=== PATIENT | female | born 1990 | race Caucasian/White ===

== ENCOUNTER → 2017-02-04 | Outpatient (CLI) | payer OTHER ==
--- NOTE | 2017-02-04 12:42 | DIAGNOSTIC IMAGING REPORT ---
R WRIST MIN 3 VIEWS ROUTINE CLINICAL HISTORY: 27 years-old Female presenting with M25.531 Wrist pain, [id number], lump over the distal ulna. TECHNIQUE: Frontal, bilateral oblique, and lateral views of the right wrist were obtained. COMPARISON: None. FINDINGS: No acute fracture or malalignment. No radiographic evidence of soft tissue swelling. Normal prominence of the distal ulna. IMPRESSION: No acute osseous injury. Electronically signed by: Jarod Briceño M.D. 02/04/2017 12:41 PM Dictated Date/Time: 02/04/2017 12:40 PM
== END ==
LOC: C.RAD1850 11:14
PROVIDERS: ATTEND Nurse Practitioner
DX: M25.531 Pain in right wrist (principal)

== ENCOUNTER → 2017-06-16 | Outpatient (CLI) | payer OTHER | END | disposition home or self-care (01) | LOC: C.LABBFT 10:26 | PROVIDERS: ATTEND Nurse Practitioner | DX: N91.2 Amenorrhea, unspecified (principal) ==

== ENCOUNTER → 2017-07-20 | Outpatient (CLI) | payer OTHER ==
[2017-07-20 14:37] LABS: BASO % 0.3 %; BASO ABS # 0.02 K/uL (0-0.2); EOS % 0.6 %; EOS ABS # 0.04 K/uL (0-0.5); HEMATOCRIT 37.9 % (37-47); HEMOGLOBIN 13.1 g/dL (12.0-16.0); IG# 0.01 K/uL (0.00-0.02); LYMPH ABS # 1.91 K/uL (1.2-3.4); MEAN CORPUSCULAR HEMOGLOBIN 30.8 pg (25-34); MEAN CORPUSCULAR HGB CONC 34.6 g/dl (32-36); MEAN PLATELET VOLUME 9.2 fL (7.4-10.4); MONO % 6.9 %; MONO ABS # 0.47 K/uL (0.11-0.59); NEUT % 64.1 %; NEUT ABS # 4.37 K/uL (1.4-6.5); PLATELET COUNT 342 K/uL (130-400); RED CELL DISTRIBUTION WIDTH CV 12.5 % (11.5-14.5); RED CELL DISTRIBUTION WIDTH SD 40.1 fL (36.4-46.3); WHITE BLOOD COUNT 6.82 K/uL (4.8-10.8)
== END | disposition home or self-care (01) ==
LOC: C.LAB1850 13:00
PROVIDERS: ATTEND Obstetrics & Gynecology
DX: Z34.01 Encounter for supervision of normal first pregnancy, first trimester (principal)

== ENCOUNTER → 2017-07-20 | Outpatient (CLI) | payer OTHER | END | disposition home or self-care (01) | LOC: C.PAPS 17:47 | PROVIDERS: ATTEND Obstetrics & Gynecology | DX: Z12.4 Encounter for screening for malignant neoplasm of cervix (principal); R87.610 Atypical squamous cells of undetermined significance on cytologic smear of cervix (ASC-US) ==

== ENCOUNTER → 2017-09-14 | Outpatient (CLI) | payer OTHER | END | disposition home or self-care (01) | LOC: C.LAB1850 11:01 | PROVIDERS: ATTEND Obstetrics & Gynecology | DX: Z34.02 Encounter for supervision of normal first pregnancy, second trimester (principal) ==

== ENCOUNTER → 2017-11-26 | Outpatient (CLI) | payer OTHER ==
[2017-11-26 10:23] LABS: HEMATOCRIT 37.2 % (37-47); HEMOGLOBIN 12.5 g/dL (12.0-16.0)
== END | disposition home or self-care (01) ==
LOC: C.LAB1850 09:17
PROVIDERS: ATTEND Obstetrics & Gynecology
DX: Z34.03 Encounter for supervision of normal first pregnancy, third trimester (principal)

== ENCOUNTER → 2017-12-02 | Outpatient (CLI) | payer OTHER | END | disposition home or self-care (01) | LOC: C.LAB1850 08:38 | PROVIDERS: ATTEND Obstetrics & Gynecology | DX: O28.1 Abnormal biochemical finding on antenatal screening of mother (principal); Z3A.00 Weeks of gestation of pregnancy not specified ==

== ENCOUNTER 2020-04-30 07:33 | Inpatient (IN) ==
--- NOTE | 2020-04-24 16:42 | History & Physical Report ---
Date of Service April 24, 2020 Assessment & Plan (1) History of delivery, currently : (2) History of pre-eclampsia in prior , currently : (3) History of delivery, currently : Patient to be admitted thursday for planned repeat c/s if no labor with . Did discuss induction risks with unfavorable cervix and use of pitocin including risk of scar rupture with prolonged use. She does not want to proceed if that is the case. She would rather proceed with c/s. Risks, alternatives and complications reviewed and consent reviewed and signed. Labs on day of surgery. History of Present Illness Chief Complaint: planned c/s Primary Care Provider: PONCHO Overton 30yo at 39 0/7 wks ega will present to L&D on 04/30/20 for planned repeat section. Patient denies rom, vb or ctx. +FM. Has desired but if no labor wants to proceed with c/s. PNC c/b 1. Prior delivery, LTCS, preeclampsia, on baby asa, desires 2. history of pylectasis this preg, resolved 3. Prior iugr, efw this preg at 32wks was aga. PNL RH pos, RI, gbs neg. covid test done today 04/24/20. All Active Problems (Updated 04/24/20 @ 16:47 by Chari Grimes MD, FACOG) History of pre-eclampsia in prior , currently History of delivery, currently ASCUS with positive high risk HPV cervical (Acute) delivery delivered Encounter for pre-operative examination Abscess (Acute) Allergies Allergy/AdvReac Type Severity Reaction Status Date / Time erythromycin base Allergy Intermediate Vomiting Verified 04/24/20 15:44 Penicillins Allergy Unknown RASH Verified 04/24/20 15:44 Home Medications Medication Instructions Recorded Confirmed Type prenat.vits,brianne,[id number] 1 tab PO QAM 07/08/19 04/24/20 History aspirin 81 mg tablet,delayed 81 mg PO QAM 01/10/20 04/24/20 History release Patient History Medical History (Updated 04/24/20 @ 16:47 by Chari Grimes MD, FACOG) Amenorrhea H/O chlamydia infection 2009 H/O migraine teenager IUGR (intrauterine growth retardation) Menstrual disorder Vaginal Pap smear, abnormal ascus/hpv +, no follow up care July 2017 Vaginitis Varicella vaccination Surgical History (Updated 04/24/20 @ 16:50 by Chari Grimes MD, FACOG) H/O oral surgery H/O wisdom tooth extraction at age 16 History of surgical removal of ganglion cyst at age 18 Hx of tonsillectomy at age 16 S/P section Family History Father Elevated cholesterol Dyslipidemia Family/Other Cerebral palsy Mother Lung cancer Anxiety Other Diabetes Denies family history of Ovarian cancer Breast cancer Colorectal cancer Social History (Updated 04/24/20 @ 09:13 by Abby Barriga, RAJINDER) Smoking Status: Former smoker Second Hand Exposure: Yes (PARENTS SMOKED WHEN SHE WAS A CHILD); Hx Alcohol Use: Yes Alcohol type: beer Hx Substance Use: No Preferred Language: Swedish Communication Ability: Effective Cooperative Manager Required: No Beliefs That Will Affect Care: None marital status: marital status details: Rodrigo Martinez (29) [phone] Current Living Situation: Spouse and Family current occupational status: previously employed and other current occupation: HOMEMAKER Feels Safe at Home: Yes Assistive Devices: Contacts and Glasses Physical Exam Constitutional: WD/WN, vitals as above Respiratory: normal respiratory effort, lungs clear to auscultation Cardiovascular: Rate/Rhythm: regular rate and regular rhythm Gastrointestinal (Abdomen): soft gravid nt Musculoskeletal: no edema nontender calves Neurologic: grossly normal Psychiatric: A+Ox3, euthymic affect Genitourinary: Manual OB Exam: + cervical dilation fingertip, + cervical effacement 50% and + station -2 Coding Level of Care Code None Diagnoses History of delivery, currently O09.899 History of pre-eclampsia in prior , currently O09.299 History of delivery, currently O34.219
[2020-04-30] MEDS ORDERED: LACTATED RINGER'S 1,000 ML IV PRN (07:43)
[2020-04-30 08:10] LABS: Hematocrit (blood only) 34.5 % (37-47); Hemoglobin 11.6 g/dL (12.0-16.0); Mean Corpuscular Hemoglobin 28.9 pg (25-34); Mean Corpuscular Hgb Conc 33.6 g/dL (32-36); Mean Platelet Volume 9.7 fL (7.4-10.4); Platelet Count 292 K/uL (130-400); RDW Coefficient of Variation 13.8 % (11.5-14.5); RDW Standard Deviation 42.9 fL (36.4-46.3); Red Blood Count 4.01 M/uL (4.2-5.4); White Blood Count 9.25 K/uL (4.8-10.8)
--- NOTE | 2020-04-30 09:39 | Anesthesiology Consultation ---
Date of Service April 30, 2020 Assessment & Plan (1) Encounter for pre-operative examination: Chart Review Chart Review: Acceptable Risk for Surgery and Patient NOT seen in Pre Admission Testing Consults Requested none ASA ASA3 Proposed Anesthesia Anesthesia Type: Spinal Risk / Benefits Reviewed With: PT / POA / Parent / Guardian, Accepts Plan and Informed Consent Obtained History Surgery Operation Date: 04/30/20 09:30 Proposed Procedures p Section in LD - Chari Grimes MD, FACOG Height/Weight Height: 5 ft 2 in Weight: 103.873 kg Allergies Allergy/AdvReac Type Severity Reaction Status Date / Time erythromycin base Allergy Intermediate Vomiting Verified 04/24/20 15:44 Penicillins Allergy Unknown RASH Verified 04/24/20 15:44 Medications Home Medications Medication Instructions Recorded Confirmed Last Taken aspirin 81 mg tablet,delayed 81 mg PO QAM 01/10/20 04/30/20 04/29/20 07:00 release prenat.vits,brianne,[id number] 1 tab PO DAILY 04/30/20 04/30/20 04/29/20 07:00 [ Vitamin] Active Medications Generic Name Dose Route Start Last Admin Trade Name Freq PRN Reason Stop Dose Admin Lactated Ringer's 1,000 mls @ 999 mls/hr 04/30/20 07:43 04/30/20 08:13 Lr IV 999 mls/hr .Q1H1M PRN Administration L&D Protocol Protocol NPO Date Last Intake of Fluids: 04/29/20 Time Last Intake of Fluids: 21:00 Date Last Intake of Solids: 04/29/20 Time Last Intake of Solids: 21:00 Past Medical History Medical History Amenorrhea H/O chlamydia infection 2009 H/O migraine teenager IUGR (intrauterine growth retardation) Menstrual disorder Vaginal Pap smear, abnormal ascus/hpv +, no follow up care July 2017 Vaginitis Varicella vaccination Exercise / Class Metabolic Activity II 4-5 Yardwork/Stairs/Walk up hill Negative for chest pain or shortness of breath. Past Family History Family History Father Elevated cholesterol Dyslipidemia Family/Other Cerebral palsy Mother Lung cancer Anxiety Other Diabetes Denies family history of Ovarian cancer Breast cancer Colorectal cancer Past Surgical History Surgical History H/O oral surgery H/O wisdom tooth extraction at age 16 History of surgical removal of ganglion cyst at age 18 Hx of tonsillectomy at age 16 S/P section Past Anesthesia History No Hx of Anesthesia Complications History of PONV No Hx of PONV Social History Smoking Status: Former smoker tobacco type: e-cigarettes Do You Dip or Chew Tobacco: No Smoking End Date: 2016 Hx Alcohol Use: Yes Alcohol type: beer alcohol intake frequency: a few times a month Alcohol Intake Frequency Comment: WHEN NOT Hx Substance Use: No substance use type: former substance user Substance Use Type Other:: more than 2 years ago Last Used Substance Other:: LAST USED 2016 Review of Systems Patient denies numbness, tingling or weakness in lower extremities. Patient denies history of abnormal bleeding or bleeding disorder. Patient denies active use of anticoagulants other than low dose aspirin. Physical Exam Vital Signs Last Vital Signs Temp 37.0 C 04/30/20 08:20 Pulse 91 H 04/30/20 08:20 Resp 20 04/30/20 08:20 BP 126/77 04/30/20 08:20 Constitutional + obese (gravid uterus) ENMT Mouth: no TMJ abnormality and oral opening not small Thyromental Distance: > or= 3.5 Finger Breadths Mallampati Class: II Neck normal visual inspection; neck extension not limited Respiratory normal respiratory effort Auscultation: lungs clear to auscultation bilaterally Cardiovascular Rate/Rhythm: regular rate and regular rhythm Heart Sounds: no murmur Neurologic moves all extremities Motor/Sensory: no sensory deficit Psychiatric Orientation: alert and oriented x 3 Testing Laboratory Results 04/30/20 07:58 Blood Type B Positive 04/30/20 07:58 Antibody Screen NEGATIVE 04/30/20 07:58
[2020-04-30] MEDS ORDERED: CITRIC ACID/SODIUM CITRATE 15 ML UDC ONE (09:41)
[2020-04-30] MEDS ORDERED: CITRIC ACID/SODIUM CITRATE 15 ML UDC PO ONE (09:43)
--- NOTE | 2020-04-30 10:15 | History & Physical Bridge Note ---
Date of Service April 30, 2020 History & Physical Bridge Note I have examined the patient, reviewed the History & Physical and in the interval since the performance of the History & Physical I have noted the following changes of clinical significance: no changes noted
[2020-04-30] MEDS ORDERED: ONDANSETRON INJ 2 MG/ML 2 ML VIAL ONE (10:20)
[2020-04-30] MEDS ORDERED: fentaNYL citrate 100 MCG/2 ML VIAL ONE (10:20)
[2020-04-30] MEDS ORDERED: MoRPHine SULFATE PF 1 MG/ML 10 ML AMP/VIAL ONE (10:20)
[2020-04-30] MEDS ORDERED: OXYTOCIN 10 UNITS/ML VIAL ONE (10:20)
[2020-04-30] MEDS ORDERED: SODIUM CHLORIDE 0.9% INJ 10 ML VIAL ONE (10:24)
[2020-04-30] MEDS ORDERED: PHENYLEPHRINE 100MCG/ML 5ML SYR ONE (11:02)
[2020-04-30] MEDS ORDERED: ePHEDrine sulfate 50 MG/ML SYR ONE (11:02)
[2020-04-30] MEDS ORDERED: NALOXONE HCL 0.4 MG/1 ML VIAL/CARP IV PRN (11:09)
[2020-04-30] MEDS ORDERED: NALOXONE HCL 0.08 MG in SYRINGE 1.8 ML IV PRN (11:09)
[2020-04-30] MEDS ORDERED: ePHEDrine sulfate 50 MG/ML AMP IV PRN (11:09)
[2020-04-30] MEDS ORDERED: ACETAMINOPHEN 1000 MG/100 ML IV IV PRN (11:09)
[2020-04-30] MEDS ORDERED: LACTATED RINGER'S 500 ML IV PRN (11:09)
[2020-04-30] MEDS ORDERED: MoRPHine SULFATE PF 1 MG/ML 10 ML AMP/VIAL INT SPINAL ONE (11:09)
[2020-04-30] MEDS ORDERED: diphenhydrAMINE 50 MG/ML VIAL IV PRN (11:09)
[2020-04-30] MEDS ORDERED: HYDROmorphone INJ 0.5 MG/0.5 ML SYR IV PRN (11:09)
[2020-04-30] MEDS ORDERED: ONDANSETRON INJ 2 MG/ML 2 ML VIAL IV PRN (11:09)
[2020-04-30] MEDS ORDERED: NALOXONE HCL 1 MG in SODIUM CHLORIDE 0.9% 1000ML 1,000 ML IV PRN (11:09)
[2020-04-30] MEDS ORDERED: SODIUM CHLORIDE 0.9% 1000ML 1,000 ML IV SCH (11:15)
[2020-04-30] MEDS ORDERED: NO NARCOTICS OR SEDATIVES SCH (11:15)
[2020-04-30] MEDS ORDERED: KETOROLAC 30 MG/ML VIAL ONE (11:28)
--- NOTE | 2020-04-30 11:44 | Post Operative Brief Note ---
PG Immediate Post Op with CF Date of Surgery April 30, 2020 Pre & Post Diagnosis Operation Date: 04/30/20 09:30 Pre-Op Diagnosis: 1. 39 week iup 2. Prior section, desires Repeat Section Post-Op Diagnosis: same I identified the patient and participated in the time-out.: Yes Procedure Operation Date: 04/30/20 09:30 Actual Procedures Repeat Low Transverse Section Surgeon Chari Grimes MD, FACOG Tunnel Elastic Operator Zigzag Dr. Centeno Estimated Blood Loss 500 Findings Consistent with Post-Op Diagnosis (viable female, apgars pending. normal uterus, tubes and ovaries bilaterally) Fluids 1300 Specimens Specimen Description: 1. Placenta, HOLD Drains Dillon Catheter Anesthesia Type Spinal Complications none Disposition Accompanied Patient To Recovery: No Disposition: L&D
--- NOTE | 2020-04-30 12:07 | Operative Report ---
PG Post Operative Report Pre & Post Diagnosis Operation Date: 04/30/20 09:30 Pre-Op Diagnosis: 1. 39+week iup 2. Prior section, desires repeat Section Post-Op Diagnosis: same I identified the patient and participated in the time-out.: Yes Procedure Operation Date: 04/30/20 09:30 Actual Procedures Repeat Low Transverse Section Surgeon Chari Grimes MD, FACOG Service Counselor Dr. Centeno Estimated Blood Loss 500 Findings Consistent with Post-Op Diagnosis (viable female, apgars 8,9. normal uterus, tubes and ovaries bilaterally) Fluids 1300 Specimens cord blood Drains huntley Anesthesia Type Spinal Complications none Disposition Accompanied Patient To Recovery: No Disposition: L&D Indications 30yo at 39 wks jose presents to L&D for planned repeat section. She had wanted to consider if presented in labor but since she did not, wanted to proceed with section. Description of Procedure The patient was taken to the operating room and identified. After adequate anesthesia was obtained, she was placed in the supine position with a leftward tilt on the operating table and prepped and draped in the usual sterile fashion. A huntley catheter had already been placed. The knife was used to create a Pfannensteil skin incision that was carried down to the underlying layer of fascia. The fascia was nicked in the midline and this opening was extended laterally using Carver scissors. Mraie clamps were placed on the superior and inferior aspect of the fascial incision tenting it upward and the underlying rectus muscles were dissected off the overlying fascia both sharply and bluntly using Carver scissors. The rectus muscles were bluntly in the midline. The peritoneal cavity was bluntly entered into. This opening was stretched. The bladder blade was placed. The vesicouterine peritoneum was elevated and opened up into and the bladder flap was created digitally and bladder blade was replaced. The knife was used to create a hysterotomy and this opening was stretched. The operators hand was placed through the hysterotomy and the bladder blade was removed. The head was elevated and flexed and with fundal pressure the head was delivered, nuchal x 2 reduced with ease. The shou lders and body were rapidly delivered. The cord was clamped and cut and the 's mouth and nares were bulb suction. The was handed off to the awaiting pediatricians. Cord blood was obtained. The placenta was manually expressed. The uterus was exteriorized and cleared of all clots and debris. Dilute IV Pitocin was begun. The uterine tone was improving. The hysterotomy was closed in a running interlocking fashion using 0 Vicryl followed by a second imbricating layer of 0 Vicryl. The hysterotomy was hemostatic. The pelvis was irrigated. The uterus was returned to the abdomen. The gutters were cleared of all clots and debris. The hysterotomy was reinspected and bleeding site was stitched with figure of eight of 2-0 vicryl for excellent hemostasis. The fascia was then closed in running fashion using 0 Vicryl. The subcutaneous fat was copiously irrigated and reapproximated using 2-0 chromic. The skin was closed in a subcuticular fashion using 4-0 Vicryl. At this point the procedure was terminated. The patient was transferred to the recovery room in stable condition. All sponge, lap and needle counts are correct x2. I attest to the content of the Intraoperative Record and any orders documented therein. Any exceptions are noted below. OB Procedure charges OB Charges 90345 C/S
[2020-04-30] MEDS ORDERED: SUPERCREAM 0.870% 15 GM JAR EXT PRN (12:39)
[2020-04-30] MEDS ORDERED: BENZOCAINE 20% AER SPR 82.5 GM CAN EXT PRN (12:39)
[2020-04-30] MEDS ORDERED: DIPHTHERIA/TETANUS/PERTUSSIS 0.5 ML SYR/VIAL IM ONE (12:39)
[2020-04-30] MEDS ORDERED: HYDROCORTISONE ACETATE 25 MG SUPP PR PRN (12:39)
[2020-04-30] MEDS: OXYTOCIN 20 UNITS in LACTATED RINGER'S 1,000 ML IV SCH ×2 (12:49→21:31)
--- NOTE | 2020-04-30 13:59 | Anesthesiology Progress Note ---
Date of Service April 30, 2020 Anesthesia Post Procedure Vital Signs Vital Signs: Temp Pulse Resp BP Pulse Ox 04/30/20 13:55 87 97 04/30/20 13:52 99 H 132/78 04/30/20 13:50 95 H 98 04/30/20 13:45 100 H 97 04/30/20 13:42 89 133/82 04/30/20 13:40 87 97 04/30/20 13:35 85 97 04/30/20 13:32 82 135/82 04/30/20 13:30 85 20 98 04/30/20 13:25 85 97 04/30/20 13:22 85 133/84 04/30/20 13:20 81 97 04/30/20 13:15 86 98 04/30/20 13:12 86 132/79 04/30/20 13:10 87 97 04/30/20 13:05 86 97 04/30/20 13:02 80 133/73 04/30/20 13:00 89 20 97 04/30/20 12:55 76 98 04/30/20 12:54 80 133/68 04/30/20 12:50 86 20 97 04/30/20 12:45 81 98 04/30/20 12:40 83 20 98 04/30/20 12:35 81 98 04/30/20 12:30 80 20 98 04/30/20 12:26 86 93 04/30/20 12:25 80 98 04/30/20 12:22 77 121/69 04/30/20 12:20 88 20 99 04/30/20 12:15 91 H 97 04/30/20 12:13 88 130/73 04/30/20 12:10 88 20 99 04/30/20 12:05 77 99 04/30/20 12:02 79 116/63 04/30/20 12:00 36.5 C 80 20 99 04/30/20 11:55 75 98 04/30/20 11:52 77 117/60 04/30/20 08:20 37.0 C 91 H 20 126/77 04/30/20 08:13 37.0 C 20 Transfer of Care Handoff Completed per policy Notes Mental Status: alert / awake / arousable and participated in evaluation Nausea / Vomiting: adequately controlled Pain: adequately controlled Airway Patency, RR, SpO2: stable & adequate BP & HR: stable & adequate Hydration State: stable & adequate Neuraxial Anesthesia: was administered and sensory block is resolving Anesthetic Complications: no major complications apparent and Pt Satisfied with anesthetic care
[2020-04-30] MEDS: SIMETHICONE 80 MG CHEW PO SCH ×3 (14:58→21:30)
[2020-04-30] MEDS: KETOROLAC 30 MG/ML VIAL IV PRN ×2 (17:07→23:36)
[2020-04-30] MEDS: DOCUSATE SODIUM 100 MG CAP PO SCH (21:30)
[2020-05-01] MEDS ORDERED: diphenhydrAMINE Capsule 25 MG CAP PO PRN (05:09)
[2020-05-01] MEDS ORDERED: diphenhydrAMINE 50 MG/ML VIAL IV PRN (05:09)
[2020-05-01] MEDS ORDERED: PROMETHAZINE HCL 25 MG in SODIUM CHLORIDE 0.9% 50 ML IV PRN (05:09)
[2020-05-01] MEDS ORDERED: KETOROLAC 30 MG/ML VIAL IV PRN (05:09)
[2020-05-01] MEDS ORDERED: ONDANSETRON INJ 2 MG/ML 2 ML VIAL IV PRN (05:09)
[2020-05-01] MEDS ORDERED: DC INTRASPINAL MORPHINE ONE (05:09)
[2020-05-01 05:54] LABS: Basophils # (auto) 0.01 K/uL (0-0.2); Basophils % (auto) 0.1 %; Eosinophils # (auto) 0.02 K/uL (0-0.5); Eosinophils % (auto) 0.3 %; Hematocrit (blood only) 27.2 % (37-47); Immature Granulocytes # (auto) 0.02 K/uL (0.00-0.02); Immature Granulocytes % (auto) 0.3 %; Lymphocytes # (auto) 1.66 K/uL (1.2-3.4); Lymphocytes % (auto) 21.3 %; Mean Corpuscular Hemoglobin 28.8 pg (25-34); Mean Corpuscular Hgb Conc 33.1 g/dL (32-36); Mean Corpuscular Volume 87.2 fL (80-100); Mean Platelet Volume 9.2 fL (7.4-10.4); Monocytes # (auto) 0.66 K/uL (0.11-0.59); Monocytes % (auto) 8.5 %; Neutrophils # (auto) 5.44 K/uL (1.4-6.5); Neutrophils % (auto) 69.5 %; Platelet Count 205 K/uL (130-400); RDW Coefficient of Variation 14.2 % (11.5-14.5); RDW Standard Deviation 45.3 fL (36.4-46.3); Red Blood Count 3.12 M/uL (4.2-5.4); White Blood Count 7.81 K/uL (4.8-10.8)
--- NOTE | 2020-05-01 07:41 | Obstetrical Progress Note ---
Date of Service May 01, 2020 Assessment & Plan (1) care following delivery: stable, hgb noted. adv diet, await void. , rh pos, ri. Day #:: 1 Subjective Ambulation: limited ambulation Passing Gas:: Yes Diet Tolerance:: clear liquids Lochia:: Small Feeding Type:: breast feeding pain control good. has not voided yet but feels urge to pee. ready to eat regular diet. . Physical Exam Constitutional WD/WN, vitals as above Respiratory normal respiratory effort, lungs clear to auscultation Cardiovascular Rate/Rhythm: regular rate and regular rhythm Gastrointestinal (Abdomen) Inspection/Auscultation: abdomen normal to inspection Percussion/Palpation: abdomen soft Fundus firm at U, to right, pt with full bladder. Musculoskeletal nt calves tr edema Neurologic grossly normal Psychiatric A+Ox3, euthymic affect Results & Data ([facility]) Vital Signs (Past 12 Hours) Vital Signs Temp Pulse Resp BP Pulse Ox Pulse Ox 05/01/20 05:00 98.4 F 109 H 17 144/74 H 97 05/01/20 03:30 17 97 05/01/20 02:30 18 96 05/01/20 01:45 18 96 05/01/20 00:40 17 97 04/30/20 23:40 98.6 F 94 H 17 115/74 98 98 04/30/20 22:30 18 98 04/30/20 21:35 18 96 04/30/20 20:30 18 96
[2020-05-01] MEDS: SIMETHICONE 80 MG CHEW PO SCH ×4 (08:21→21:51)
[2020-05-01] MEDS: IBUPROFEN 600 MG TAB PO PRN ×4 (08:21→21:52)
[2020-05-01] MEDS: DOCUSATE SODIUM 100 MG CAP PO SCH ×2 (08:21→21:52)
[2020-05-01] MEDS: oxyCODONE/ACETAMINOPHEN 5mg/325mg TAB PO PRN ×4 (08:22→21:50)
--- NOTE | 2020-05-01 09:48 | Anesthesiology Progress Note ---
Date of Service May 01, 2020 Anesthesia Post Procedure Vital Signs Vital Signs: Temp Pulse Pulse Pulse Resp BP BP 05/01/20 08:20 36.8 C 102 H 16 117/77 05/01/20 05:00 36.9 C 109 H 17 144/74 H 05/01/20 03:30 17 05/01/20 02:30 18 05/01/20 01:45 18 05/01/20 00:40 17 04/30/20 23:40 37.0 C 94 H 17 115/74 04/30/20 22:30 18 04/30/20 21:35 18 04/30/20 20:30 18 04/30/20 19:25 37.1 C 101 H 18 124/75 04/30/20 18:45 18 04/30/20 17:40 18 04/30/20 16:40 93 H 16 129/85 04/30/20 15:40 37.0 C 90 18 122/83 04/30/20 14:40 89 04/30/20 14:35 83 04/30/20 14:32 88 132/72 04/30/20 14:30 90 04/30/20 14:25 86 04/30/20 14:22 86 131/72 04/30/20 14:20 83 04/30/20 14:15 93 H 04/30/20 14:12 86 122/62 04/30/20 14:10 89 04/30/20 14:05 92 H 04/30/20 14:02 88 112/55 L 04/30/20 14:00 88 20 04/30/20 13:55 87 04/30/20 13:52 99 H 132/78 04/30/20 13:50 95 H 04/30/20 13:45 100 H 04/30/20 13:42 89 133/82 04/30/20 13:40 87 04/30/20 13:35 85 04/30/20 13:32 82 135/82 04/30/20 13:30 85 20 04/30/20 13:25 85 04/30/20 13:22 85 133/84 04/30/20 13:20 81 04/30/20 13:15 86 04/30/20 13:12 86 132/79 04/30/20 13:10 87 04/30/20 13:05 86 04/30/20 13:02 80 133/73 04/30/20 13:00 89 20 04/30/20 12:55 76 04/30/20 12:54 80 133/68 04/30/20 12:50 86 20 04/30/20 12:45 81 04/30/20 12:40 83 20 04/30/20 12:35 81 04/30/20 12:30 80 20 04/30/20 12:26 86 04/30/20 12:25 80 04/30/20 12:22 77 121/69 04/30/20 12:20 88 20 04/30/20 12:15 91 H 04/30/20 12:13 88 130/73 04/30/20 12:10 88 20 04/30/20 12:05 77 04/30/20 12:02 79 116/63 04/30/20 12:00 36.5 C 80 20 04/30/20 11:55 75 04/30/20 11:52 77 117/60 Pulse Ox Pulse Ox 05/01/20 08:20 97 05/01/20 05:00 97 05/01/20 03:30 97 05/01/20 02:30 96 05/01/20 01:45 96 05/01/20 00:40 97 04/30/20 23:40 98 98 04/30/20 22:30 98 04/30/20 21:35 96 04/30/20 20:30 96 04/30/20 19:25 96 96 04/30/20 18:45 95 04/30/20 17:40 97 04/30/20 16:40 97 04/30/20 15:40 97 97 04/30/20 14:40 98 04/30/20 14:35 97 04/30/20 14:32 04/30/20 14:30 98 04/30/20 14:25 98 04/30/20 14:22 04/30/20 14:20 98 04/30/20 14:15 95 04/30/20 14:12 04/30/20 14:10 97 04/30/20 14:05 97 04/30/20 14:02 04/30/20 14:00 97 04/30/20 13:55 97 04/30/20 13:52 04/30/20 13:50 98 04/30/20 13:45 97 04/30/20 13:42 04/30/20 13:40 97 04/30/20 13:35 97 04/30/20 13:32 04/30/20 13:30 98 04/30/20 13:25 97 04/30/20 13:22 04/30/20 13:20 97 04/30/20 13:15 98 04/30/20 13:12 04/30/20 13:10 97 04/30/20 13:05 97 04/30/20 13:02 04/30/20 13:00 97 04/30/20 12:55 98 04/30/20 12:54 04/30/20 12:50 97 04/30/20 12:45 98 04/30/20 12:40 98 04/30/20 12:35 98 04/30/20 12:30 98 04/30/20 12:26 93 04/30/20 12:25 98 04/30/20 12:22 04/30/20 12:20 99 04/30/20 12:15 97 04/30/20 12:13 04/30/20 12:10 99 04/30/20 12:05 99 04/30/20 12:02 04/30/20 12:00 99 04/30/20 11:55 98 04/30/20 11:52 Transfer of Care Handoff Completed per policy Notes Mental Status: alert / awake / arousable Patient Amnestic to Procedure: Yes Nausea / Vomiting: adequately controlled Pain: adequately controlled Airway Patency, RR, SpO2: stable & adequate BP & HR: stable & adequate Hydration State: stable & adequate Neuraxial Anesthesia: was administered and sensory block resolved Anesthetic Complications: no major complications apparent and Pt Satisfied with anesthetic care
[2020-05-01] MEDS: FERROUS SULFATE 325 MG TAB PO SCH (12:19)
[2020-05-02] MEDS: IBUPROFEN 600 MG TAB PO PRN ×2 (05:14→09:56)
[2020-05-02] MEDS: oxyCODONE/ACETAMINOPHEN 5mg/325mg TAB PO PRN ×2 (05:15→09:56)
--- NOTE | 2020-05-02 05:32 | Obstetrical Progress Note ---
Date of Service May 02, 2020 Assessment & Plan (1) care following delivery: S/p Elective Repeat LTCS Day 2 - Feels well today. Eating well, voiding well, ambulating well. - Pain well-controlled with ibuprofen/percocet Q4H PRN - Vital signs reviewed: mildly tachycardic to [id number], otherwise stable/WNL. - Hemoglobin reviewed. 11.6 --> 9.0 --> 8.8 (today). - Blood Type: B+, antibody negative, GBS negative, Rubella Immune, COVID-19 negative - Continue routine post-operative care: encourage ambulation, monitor and control pain with Motrin PRN, continue regular OB diet, monitor lochia - Encourage breast feeding. - Pt counselled on discharge instructions - After discharge, will have 6-wk follow-up with Dr. Grimes Admission and Anticipated Discharge Date Admission Date: April 30, 2020 Supervising Physician Co-Signing Physician Notes Patient seen and evaluated and agree with the above findings and plan. Stable for discharge today per patient request Subjective HPI Manda Martinez is a 30 y/o female who is POD #2 following elective repeat delivery at 39 weeks. She reports feeling well overall this morning. mild abdominal cramping and 4-7/10 pain well managed on analgesics. Voiding well. Tolerating meals overnight without difficulty. Patient has been able to ambulate some. passing gas and no bowel movement. Has persistent lochia with no improvement this morning. Currently . Review of Systems Review of Systems: ROS Denies fever or chills. Denies shortness of breath or cough. Denies chest pain. Denies breast pain. Denies dysuria. Denies leg pain or leg swelling. Denies headache or changes in vision. Physical Exam Physical Exam: PE General: Alert, oriented. No acute distress. Cardiac: Regular rate and rhythm. No murmurs. Respiratory: Clear to auscultation bilaterally a/p, no wheezes/rales/rhonchi. No increased work of breathing. Symmetrical chest rise. No respiratory distress. Abdomen: Soft, nontender, nondistended. Bowel sounds present. Uterus: Uterine fundus firm, palpable at umbilicus. Surgical scar clean and healing well. Lower Extremities: No lower extremity edema or swelling. No deep calf pain. Tammy's negative bilaterally. Results & Data ([facility]) Vital Signs (Past 12 Hours) Vital Signs Temp Pulse Resp BP 05/01/20 23:30 36.8 C 98 H 18 119/73 05/01/20 19:30 36.8 C 103 H 18 123/75 Resident Activity Tracking Resident Involvement: Resident Care Provided Care Provided: Adult Hospital Medicine
[2020-05-02 06:06] LABS: Hematocrit (blood only) 27.5 % (37-47); Hemoglobin 8.8 g/dL (12.0-16.0)
[2020-05-02] MEDS: DOCUSATE SODIUM 100 MG CAP PO SCH (08:16)
[2020-05-02] MEDS: FERROUS SULFATE 325 MG TAB PO SCH (08:16)
[2020-05-02] MEDS: SIMETHICONE 80 MG CHEW PO SCH ×2 (08:16→12:49)
--- NOTE | 2020-05-07 20:43 | Discharge Summary ---
Date of Service Date of admission: Apr 30, 2020 Date of discharge: May 02, 2020 Admission HPI Per Admitting Provider 30yo at 39 0/7 wks ega will present to L&D on 04/30/20 for planned repeat section. Patient denies rom, vb or ctx. +FM. Has desired but if no labor wants to proceed with c/s. PNC c/b 1. Prior delivery, LTCS, preeclampsia, on baby asa, desires 2. history of pylectasis this preg, resolved 3. Prior iugr, efw this preg at 32wks was aga. PNL RH pos, RI, gbs neg. covid test done today 04/24/20. All Active Problems (Updated 04/24/20 @ 16:47 by Chari Grimes MD, FACOG) History of pre-eclampsia in prior , currently History of delivery, currently ASCUS with positive high risk HPV cervical (Acute) delivery delivered Encounter for pre-operative examination Abscess (Acute) Discharge Data Consultations 04/30/20 07:43 Consult Anesthesiology Stat Procedures Performed Operation Date: 04/30/20 09:30 Actual Procedures p Section in LD - Chari Grimes MD, FACOG Hospital Course (1) care following delivery: (2) delivery delivered: The patient underwent the above stated procedure without incident and her postoperative course and recovery was uncomplicated. On her postoperative day #2 she was tolerating a regular diet, voiding spontaneously, ambulating without problem and was using oral meds for adequate pain control. Her postoperative hemoglobin was 8.8. She was given written and verbal discharge instructions and told to followup in office at 6wks. She was given appropriate pain medicine prescriptions. Coding Level of Care Code None Diagnoses care following delivery Z39.2 delivery delivered O82
== END 2020-05-02 13:05 | disposition home or self-care (01) | DRG 788 ==
LOC: 4S1 07:33 → 4S2 14:52 → EDSTATUS 05-07 07:30
DX: O34.211 Maternal care for low transverse scar from previous cesarean delivery; Z3A.39 39 weeks gestation of pregnancy; Z37.0 Single live birth; O69.82X0 Labor and delivery complicated by other cord entanglement, without compression, not applicable or unspecified